=== PATIENT | male | born 2000 | race Caucasian/White ===

== ENCOUNTER 2024-05-29 23:09 | Emergency (ER) | payer OTHER ==
[~2024-05-29] VITALS: Ht 182.9 cm; Wt 113.4 kg
[~2024-05-29 23:09] MED LIST: AZIT100SU PO; RXAZITHSU PO
[2024-05-30 00:29] LABS: CORONAVIRUS COVID-19 AG Negative (NEGATIVE); INFLUENZA A AG Positive (NEGATIVE); INFLUENZA B AG Negative (NEGATIVE)
[2024-05-30] MEDS ORDERED: OSEL75CA PO (02:29)
[2024-05-30] MEDS ORDERED: Oseltamivir Phosphate 75 MG Cap PO ONE (02:30)
== END 2024-05-30 02:38 | disposition home or self-care (01) ==
LOC: ER 23:09
PROVIDERS: Emergency Medicine
DX: J10.1 Influenza due to other identified influenza virus with other respiratory manifestations (principal); Z88.0 Allergy status to penicillin; Z88.5 Allergy status to narcotic agent; Z88.6 Allergy status to analgesic agent; Z88.8 Allergy status to other drugs, medicaments and biological substances
CPT/HCPCS: 87428-QW; 99283; A9270